=== PATIENT | male | born 1960 | race Caucasian/White ===

== ENCOUNTER 2017-05-10 12:56 | Inpatient (IN) | payer OTHER ==
[~2017-05-10] VITALS: Ht 172.7 cm; Wt 113.2 kg
[~2017-05-10 12:56] MED LIST: ADULT LOW DOSE81 M1 PO
[2017-05-10 14:07] LABS: CHLORIDE 98 mEq/L (99-109); EOSINOPHIL (%) 0 % (0-5); HEMATOCRIT 7.8 % (38.0-50.0); IMMATURE GRANULOCYTE (%) 0.7 % (0.0-0.7); IMMATURE GRANULOCYTE COUNT 0.1 K/uL; INSTRUMENT ABS NEUTROPHIL CT 9.3 K/uL; LYMPHOCYTE COUNT 1.8 K/uL (1.0-2.8); MCH 36.5 PG (29.0-34.0); MCHC 34.6 G/DL (30.0-36.0); MCV 105.4 FL (86-99); MEAN PLAT.VOLUME 12.7 uM^3 (9.0-12.4); MONOCYTE (%) 6.3 % (3-12); MONOCYTE COUNT 0.8 K/uL (0-0.8); NEUTROPHIL (%) 78.2 % (45-76); NEUTROPHIL COUNT 9.3 K/uL (1.8-6.4); PLATELET COUNT 182 K/uL (156-360); POTASSIUM 3.2 mEq/L (3.7-5.4); RBC DIS.WIDTH-CV 15.5 % (11.8-14.6); RBC DIS.WIDTH-SD 55.8 % (39-53); RED BLOOD COUNT 0.74 M/uL (4.00-5.50); SODIUM 141 mEq/L (136-147); WHITE BLOOD COUNT 11.9 K/uL (4.1-10.2)
[2017-05-10 14:08] LABS: MAGNESIUM 2.3 mg/dL (1.3-2.7)
[2017-05-10 14:09] LABS: GLUCOSE 128 mg/dL (70-99); INTER. NORMALIZED RATIO 1.8; PROTHROMBIN TIME 18.9 (9.2-11.2); PTT 25.5 (25-32)
[2017-05-10 14:11] LABS: ANION GAP 15 MEQ/L (2-14)
[2017-05-10 14:13] LABS: GFR ESTIMATE (CALCULATED) > 59 mL/min/
[2017-05-10 14:14] LABS: UREA NITROGEN (BUN) 37 mg/dL (9-23)
[2017-05-10 14:19] LABS: TROP-I INTERPRETATION INDETERMINATE
[2017-05-10 14:20] LABS: TROPONIN-I 0.56 ng/mL (0.0-0.30)
[2017-05-10 15:07] LABS: HEMATOCRIT 7.3 % (38.0-50.0); MCH 37.7 PG (29.0-34.0); MCHC 35.6 G/DL (30.0-36.0); MCV 105.8 FL (86-99); MEAN PLAT.VOLUME 13.4 uM^3 (9.0-12.4); PLATELET COUNT 175 K/uL (156-360); RBC DIS.WIDTH-CV 15.9 % (11.8-14.6); RBC DIS.WIDTH-SD 56.9 % (39-53); RED BLOOD COUNT 0.69 M/uL (4.00-5.50); WHITE BLOOD COUNT 11.1 K/uL (4.1-10.2)
[2017-05-10] MEDS ORDERED: SULINDAC200 MG PO (17:39)
[2017-05-10] MEDS ORDERED: HYDROCHLOROTHIA25 MG PO (17:39)
[2017-05-10] MEDS ORDERED: INCRUSE ELLI62.5 MCG IH (17:39)
[2017-05-10] MEDS ORDERED: ATORVASTATIN CA10 MG PO (17:39)
[2017-05-10] MEDS ORDERED: TYLENOL EXTRA500 MG PO (17:40)
[2017-05-10] MEDS ORDERED: DULERA 200 MCG/13 GM IH (17:40)
[2017-05-10 19:30] VITALS: BP 117/45
[2017-05-10 20:00] VITALS: BP 112/63
[2017-05-10 21:00] VITALS: BP 107/50
[2017-05-10 21:15] LABS: METH RESISTANT S AUREUS PCR NEGATIVE (NEGATIVE); PROBE CHECK PASS; SPECIMEN PROCESSING CONTROL PASS
[2017-05-10 22:00] VITALS: BP 119/55
[2017-05-10 23:00] VITALS: BP 112/56
[2017-05-11] VITALS (36 sets, daily range): BP systolic 96–162; BP diastolic 48–111
[2017-05-11 02:07] LABS: CHLORIDE 100 mEq/L (99-109); POTASSIUM 3.2 mEq/L (3.7-5.4); SODIUM 143 mEq/L (136-147)
[2017-05-11 02:09] LABS: GLUCOSE 122 mg/dL (70-99)
[2017-05-11 02:10] LABS: ANION GAP 12 MEQ/L (2-14)
[2017-05-11 02:12] LABS: ALKALINE PHOSPHATASE 93 IU/L (3-129)
[2017-05-11 02:13] LABS: GFR ESTIMATE (CALCULATED) > 59 mL/min/
[2017-05-11 02:14] LABS: UREA NITROGEN (BUN) 41 mg/dL (9-23)
[2017-05-11 02:17] LABS: WHITE BLOOD COUNT 11.4 K/uL (4.1-10.2)
[2017-05-11 02:18] LABS: HEMATOCRIT 7.6 % (38.0-50.0); MCH 37.1 PG (29.0-34.0); MCHC 34.2 G/DL (30.0-36.0); MCV 108.6 FL (86-99); MEAN PLAT.VOLUME 13.2 uM^3 (9.0-12.4); RBC DIS.WIDTH-CV 16.7 % (11.8-14.6); RBC DIS.WIDTH-SD 57.9 % (39-53)
[2017-05-11 02:19] LABS: PLATELET COUNT 186 K/uL (156-360)
[2017-05-11 02:27] LABS: TROP-I INTERPRETATION POSITIVE; TROPONIN-I 0.87 ng/mL (0.0-0.30)
[2017-05-11 02:33] LABS: INTER. NORMALIZED RATIO 1.6; PROTHROMBIN TIME 16.4 (9.2-11.2); PTT 26.1 (25-32)
[2017-05-11 02:34] LABS: MAGNESIUM 2.7 mg/dL (1.3-2.7)
[2017-05-11 04:18] LABS: IRON 253 MCG/DL (35-150)
[2017-05-11 06:25] LABS: CARBON DIOXIDE (BICARBONATE) 34.1 MEQ/L (20-31)
[2017-05-11 09:08] LABS: ALKALINE PHOSPHATASE 85 IU/L (3-129); ANION GAP 11 MEQ/L (2-14); CHLORIDE 103 MEQ/L (99-109); GFR ESTIMATE (CALCULATED) > 59 mL/min/; GLUCOSE 125 mg/dL (70-99); POTASSIUM 3.8 MEQ/L (3.7-5.4); SAMPLE HEMOLYSIS CHECK 0; SAMPLE ICTERIC CHECK 0; SAMPLE LIPEMIA CHECK 0; SODIUM 145 MEQ/L (136-147); UREA NITROGEN (BUN) 41 mg/dL (9-23)
[2017-05-11 10:33] LABS: HBSG INDEX 0.27
[2017-05-11 10:34] LABS: ANTI-HEPATITIS A VIRUS (IGM) Nonreactive; HAV INDEX 0.13
[2017-05-11 10:35] LABS: ANTI-HEPATITIS B CORE (IGM) Nonreactive; HBC IgM INDEX 0.11
[2017-05-11 13:34] LABS: TROP-I INTERPRETATION POSITIVE; TROPONIN-I 0.61 ng/mL (0.0-0.30)
[2017-05-11 22:48] LABS: HEMATOCRIT 22.1 % (38.0-50.0); MCV 92.5 FL (86-99)
[2017-05-12] VITALS (8 sets, daily range): BP systolic 118–142; BP diastolic 73–88
[2017-05-12 06:46] LABS: LACTATE DEHYDROGENASE 460 IU/L (20-246)
[2017-05-12 10:41] LABS: ALKALINE PHOSPHATASE 95 IU/L (3-129)
[2017-05-12 10:42] LABS: TOTAL BILIRUBIN 2.5 MG/DL (0.0-1.0)
[2017-05-12 14:18] LABS: IMM.RETIC FRACTION 21.8 % (3-19); RETIC HGB EQUIVALENT 39.7 (28-36); RETICULOCYTE COUNT 1.6 % (0.5-1.8)
[2017-05-12 15:22] LABS: ANION GAP 8 MEQ/L (2-14); CHLORIDE 103 MEQ/L (99-109); GFR ESTIMATE (CALCULATED) > 59 mL/min/; GLUCOSE 186 mg/dL (70-99); POTASSIUM 3.6 MEQ/L (3.7-5.4); SAMPLE HEMOLYSIS CHECK 0; SAMPLE ICTERIC CHECK 0; SAMPLE LIPEMIA CHECK 0; SODIUM 142 MEQ/L (136-147); UREA NITROGEN (BUN) 23 mg/dL (9-23)
[2017-05-13 00:18] VITALS: BP 130/74
[2017-05-13 01:00] LABS: ADD MIUA? NO; BILIRUBIN NEGATIVE; BLOOD NEGATIVE; COLOR YELLOW ((YELLOW)); GLUCOSE (STRIP) NEGATIVE; KETONES NEGATIVE; LEUKOCYTES NEGATIVE; NITRITE NEGATIVE; PROTEIN (STRIP) NEGATIVE; SPECIFIC GRAVITY 1.016 (1.000-1.030)
[2017-05-13 04:33] VITALS: BP 127/81
[2017-05-13 05:39] LABS: EOSINOPHIL (%) 0 % (0-5); HEMATOCRIT 20.8 % (38.0-50.0); IMMATURE GRANULOCYTE (%) 0.6 % (0.0-0.7); IMMATURE GRANULOCYTE COUNT 0.1 K/uL; INSTRUMENT ABS NEUTROPHIL CT 8.5 K/uL; LYMPHOCYTE COUNT 1.6 K/uL (1.0-2.8); MCH 32.1 PG (29.0-34.0); MCHC 34.6 G/DL (30.0-36.0); MCV 92.9 FL (86-99); MEAN PLAT.VOLUME 12.6 uM^3 (9.0-12.4); MONOCYTE (%) 6.5 % (3-12); MONOCYTE COUNT 0.7 K/uL (0-0.8); NEUTROPHIL COUNT 8.5 K/uL (1.8-6.4); PLATELET COUNT 139 K/uL (156-360); RBC DIS.WIDTH-CV 17.4 % (11.8-14.6); RBC DIS.WIDTH-SD 56.7 % (39-53); WHITE BLOOD COUNT 10.8 K/uL (4.1-10.2)
[2017-05-13 05:55] LABS: RED BLOOD COUNT 2.24 M/uL (4.00-5.50)
[2017-05-13 06:45] LABS: ALKALINE PHOSPHATASE 74 IU/L (3-129); ANION GAP 8 MEQ/L (2-14); CHLORIDE 103 MEQ/L (99-109); GFR ESTIMATE (CALCULATED) > 59 mL/min/; POTASSIUM 3.6 MEQ/L (3.7-5.4); SAMPLE HEMOLYSIS CHECK 0; SAMPLE ICTERIC CHECK 0; SAMPLE LIPEMIA CHECK 0; SODIUM 141 MEQ/L (136-147); UREA NITROGEN (BUN) 21 mg/dL (9-23)
[2017-05-13 06:48] LABS: GLUCOSE 117 mg/dL (70-99); TOTAL BILIRUBIN 1.6 MG/DL (0.0-1.0)
[2017-05-13 08:02] VITALS: BP 132/76
[2017-05-13 11:16] VITALS: BP 113/61
[2017-05-13 15:10] VITALS: BP 130/71
[2017-05-14] VITALS (12 sets, daily range): BP systolic 128–149; BP diastolic 66–90
[2017-05-14 05:53] LABS: EOSINOPHIL (%) 0 % (0-5); HEMATOCRIT 22.6 % (38.0-50.0); IMMATURE GRANULOCYTE (%) 0.5 % (0.0-0.7); IMMATURE GRANULOCYTE COUNT 0.1 K/uL; INSTRUMENT ABS NEUTROPHIL CT 7.3 K/uL; LYMPHOCYTE COUNT 1.8 K/uL (1.0-2.8); MCH 32.2 PG (29.0-34.0); MCHC 34.5 G/DL (30.0-36.0); MCV 93.4 FL (86-99); MEAN PLAT.VOLUME 12.2 uM^3 (9.0-12.4); MONOCYTE (%) 8.3 % (3-12); MONOCYTE COUNT 0.8 K/uL (0-0.8); NEUTROPHIL COUNT 7.3 K/uL (1.8-6.4); PLATELET COUNT 148 K/uL (156-360); RBC DIS.WIDTH-CV 16.8 % (11.8-14.6); RBC DIS.WIDTH-SD 55.1 % (39-53); RED BLOOD COUNT 2.42 M/uL (4.00-5.50); WHITE BLOOD COUNT 10.1 K/uL (4.1-10.2)
[2017-05-14 06:42] LABS: ALKALINE PHOSPHATASE 68 IU/L (3-129); ANION GAP 5 MEQ/L (2-14); CHLORIDE 105 MEQ/L (99-109); GFR ESTIMATE (CALCULATED) > 59 mL/min/; GLUCOSE 123 mg/dL (70-99); POTASSIUM 4.1 MEQ/L (3.7-5.4); SAMPLE HEMOLYSIS CHECK 0; SAMPLE ICTERIC CHECK 0; SAMPLE LIPEMIA CHECK 0; SODIUM 141 MEQ/L (136-147); UREA NITROGEN (BUN) 18 mg/dL (9-23)
[2017-05-14 06:43] LABS: TOTAL BILIRUBIN 1.2 MG/DL (0.0-1.0)
[2017-05-15 00:31] VITALS: BP 161/88
[2017-05-15 03:22] VITALS: BP 120/80
[2017-05-15 05:50] LABS: EOSINOPHIL (%) 0 % (0-5); HEMATOCRIT 28.1 % (38.0-50.0); IMMATURE GRANULOCYTE (%) 0.4 % (0.0-0.7); INSTRUMENT ABS NEUTROPHIL CT 7.1 K/uL; LYMPHOCYTE COUNT 2.1 K/uL (1.0-2.8); MCH 32.3 PG (29.0-34.0); MCHC 34.5 G/DL (30.0-36.0); MCV 93.7 FL (86-99); MEAN PLAT.VOLUME 12.2 uM^3 (9.0-12.4); MONOCYTE (%) 7.7 % (3-12); MONOCYTE COUNT 0.8 K/uL (0-0.8); NEUTROPHIL (%) 70.9 % (45-76); NEUTROPHIL COUNT 7.1 K/uL (1.8-6.4); NRBC (%) 0.2 /100 WBC (0-0); PLATELET COUNT 135 K/uL (156-360); RBC DIS.WIDTH-CV 16.1 % (11.8-14.6); RBC DIS.WIDTH-SD 51.9 % (39-53)
[2017-05-15 06:13] LABS: ANION GAP 7 MEQ/L (2-14); CHLORIDE 106 MEQ/L (99-109); POTASSIUM 4.1 MEQ/L (3.7-5.4); SAMPLE HEMOLYSIS CHECK 0; SAMPLE ICTERIC CHECK 0; SAMPLE LIPEMIA CHECK 0; SODIUM 141 MEQ/L (136-147); TOTAL BILIRUBIN 1.3 MG/DL (0.0-1.0)
[2017-05-15 06:19] LABS: ALKALINE PHOSPHATASE 62 IU/L (3-129); GFR ESTIMATE (CALCULATED) > 59 mL/min/; GLUCOSE 116 mg/dL (70-99); UREA NITROGEN (BUN) 15 mg/dL (9-23)
[2017-05-15 08:20] VITALS: BP 157/79
[2017-05-15] MEDS ORDERED: DAILY VALUE1 EACH PO (11:56)
[2017-05-15] MEDS ORDERED: FOLIC ACID1 MG PO (11:56)
[2017-05-15] MEDS ORDERED: Thiamine,Vitamin B1 PO (11:56)
[2017-05-15] MEDS ORDERED: LISINOPRIL2.5 MG PO (11:56)
[2017-05-15] MEDS ORDERED: PREDNISONE50 MG PO (11:56)
[2017-05-15] MEDS ORDERED: CHLORDIAZEPOXID25 MG PO (11:56)
[2017-05-15] MEDS ORDERED: ULTRAM50 MG PO (11:56)
[2017-05-15] MEDS ORDERED: FAMOTIDINE40 MG PO (11:56)
[2017-05-15 12:23] VITALS: BP 154/79
== END 2017-05-15 14:10 | disposition home or self-care (01) | DRG 808 ==
LOC: EME 12:56 → EDOF 16:51 → 4WEST 16:51 → EDOF 19:15 → 4WEST 05-11 23:01 → 5SOUTH 05-12 20:04
PROVIDERS: Emergency Medicine; Hospitalist; Internal Medicine Cardiovascular Disease; Internal Medicine Critical Care Medicine; Internal Medicine Hematology & Oncology; Obstetrics & Gynecology
PROC: 30233N1 Transfusion of Nonautologous Red Blood Cells into Peripheral Vein, Percutaneous Approach (ICD-10-PCS; principal; 2017-05-10)
DX: D59.1 Other autoimmune hemolytic anemias (principal); I21.4 Non-ST elevation (NSTEMI) myocardial infarction; E86.0 Dehydration; E86.1 Hypovolemia; E87.6 Hypokalemia; I10 Essential (primary) hypertension; J44.9 Chronic obstructive pulmonary disease, unspecified; E66.9 Obesity, unspecified; F10.10 Alcohol abuse, uncomplicated; F17.210 Nicotine dependence, cigarettes, uncomplicated; G47.33 Obstructive sleep apnea (adult) (pediatric); K76.0 Fatty (change of) liver, not elsewhere classified; M17.9 Osteoarthritis of knee, unspecified; M79.7 Fibromyalgia; I95.9 Hypotension, unspecified; R59.0 Localized enlarged lymph nodes; R74.0 Nonspecific elevation of levels of transaminase and lactic acid dehydrogenase [LDH]; M75.91 Shoulder lesion, unspecified, right shoulder; Z79.82 Long term (current) use of aspirin; Z88.0 Allergy status to penicillin; Z68.37 Body mass index [BMI] 37.0-37.9, adult
CPT/HCPCS: 70450; 71010; 71260; 74177; 76705; 80048; 80053; 80074; 80076; 81003; 82607; 82746; 82803; 82948; 83010 90; 83021 90; 83540; 83615; 83735; 84100; 84466; 84484; 85014; 85018; 85025; 85027; 85045; 85610; 85730; 86860; 86860 90; 86870; 86880; 86880 90; 86885 90; 86900; 86900 90; 86901; 86901 90; 86904 90; 86905 90; 86906 90; 86920; 86970 90; 86971 90; 86978 90; 87641; 93005; 93306; 94640; 94640 76; 94760; 94799; 99281; 99285; J7120; J7512; P9016; S0028

== ENCOUNTER 2017-07-18 13:39 | Inpatient (IN) | payer OTHER ==
[2017-07-18] VITALS (9 sets, daily range): BP systolic 95–135; BP diastolic 63–80
[~2017-07-18] VITALS: Ht 172.7 cm; Wt 109.4 kg
[~2017-07-18 13:39] MED LIST changes: +ATORVASTATIN CA10 MG PO; +CHLORDIAZEPOXID25 MG PO; +DAILY VALUE1 EACH PO; +DULERA 200 MCG/13 GM IH; +FAMOTIDINE40 MG PO; +FOLIC ACID1 MG PO; +HYDROCHLOROTHIA25 MG PO; +INCRUSE ELLI62.5 MCG IH; +LISINOPRIL2.5 MG PO; +PREDNISONE50 MG PO; +SULINDAC200 MG PO; +TYLENOL EXTRA500 MG PO; +Thiamine,Vitamin B1 PO; +ULTRAM50 MG PO
[2017-07-18 14:43] LABS: EOSINOPHIL (%) 0.7 % (0-5); EOSINOPHIL COUNT 0.1 K/uL (0-0.3); HEMATOCRIT 41.8 % (38.0-50.0); IMMATURE GRANULOCYTE (%) 0.7 % (0.0-0.7); IMMATURE GRANULOCYTE COUNT 0.1 K/uL; INSTRUMENT ABS NEUTROPHIL CT 7.8 K/uL; LYMPHOCYTE COUNT 1.5 K/uL (1.0-2.8); MCH 31.6 PG (29.0-34.0); MCHC 35.6 G/DL (30.0-36.0); MCV 88.6 FL (86-99); MEAN PLAT.VOLUME 11.3 uM^3 (9.0-12.4); MONOCYTE (%) 12.4 % (3-12); MONOCYTE COUNT 1.3 K/uL (0-0.8); NEUTROPHIL (%) 72.1 % (45-76); NEUTROPHIL COUNT 7.8 K/uL (1.8-6.4); PLATELET COUNT 272 K/uL (156-360); RBC DIS.WIDTH-CV 14.8 % (11.8-14.6); RBC DIS.WIDTH-SD 48.4 % (39-53); RED BLOOD COUNT 4.72 M/uL (4.00-5.50); WHITE BLOOD COUNT 10.8 K/uL (4.1-10.2)
[2017-07-18 14:48] LABS: INTER. NORMALIZED RATIO 1.2; PROTHROMBIN TIME 13.1 SEC (10.2-12.9)
[2017-07-18 14:53] LABS: CHLORIDE 85 mEq/L (99-109); POTASSIUM 5.7 mEq/L (3.7-5.4); SODIUM 128 mEq/L (136-147)
[2017-07-18 14:55] LABS: GLUCOSE 129 mg/dL (70-99)
[2017-07-18 14:57] LABS: ANION GAP 30 MEQ/L (2-14)
[2017-07-18 14:59] LABS: ALKALINE PHOSPHATASE 75 IU/L (3-129); GFR ESTIMATE (CALCULATED) 7 mL/min/
[2017-07-18 15:01] LABS: DIRECT BILIRUBIN 0.5 mg/dL (0.0-0.3)
[2017-07-18 15:03] LABS: TROP-I INTERPRETATION NEGATIVE; TROPONIN-I 0.03 ng/mL (0.0-0.30)
[2017-07-18 15:17] LABS: UREA NITROGEN (BUN) 124 mg/dL (9-23)
[2017-07-18 20:00] LABS: MCH 32.3 PG (29.0-34.0); MCHC 35.5 G/DL (30.0-36.0); MCV 90.9 FL (86-99); MEAN PLAT.VOLUME 11.2 uM^3 (9.0-12.4); PLATELET COUNT 216 K/uL (156-360); RBC DIS.WIDTH-CV 15.2 % (11.8-14.6); RBC DIS.WIDTH-SD 50.6 % (39-53)
[2017-07-18 20:32] LABS: ANION GAP 21 MEQ/L (2-14); CHLORIDE 92 MEQ/L (99-109); MAGNESIUM 1.9 mg/dl (1.3-2.7); POTASSIUM 5.1 MEQ/L (3.7-5.4); SAMPLE HEMOLYSIS CHECK 0; SAMPLE ICTERIC CHECK 0; SAMPLE LIPEMIA CHECK 0; SODIUM 129 MEQ/L (136-147)
[2017-07-18 20:43] LABS: GFR ESTIMATE (CALCULATED) 9 mL/min/; GLUCOSE 119 mg/dL (70-99)
[2017-07-18 20:45] LABS: UREA NITROGEN (BUN) 114 mg/dL (9-23)
[2017-07-18 22:27] LABS: METH RESISTANT S AUREUS PCR NEGATIVE (NEGATIVE)
[2017-07-18 22:36] LABS: PROBE CHECK PASS; SPECIMEN PROCESSING CONTROL PASS
[2017-07-19] VITALS (18 sets, daily range): BP systolic 111–144; BP diastolic 63–93
[2017-07-19 05:38] LABS: HEMATOCRIT 40.3 % (38.0-50.0); MCH 30.9 PG (29.0-34.0); MEAN PLAT.VOLUME 11.3 uM^3 (9.0-12.4); PLATELET COUNT 227 K/uL (156-360); RBC DIS.WIDTH-CV 15.2 % (11.8-14.6); RBC DIS.WIDTH-SD 50.7 % (39-53); RED BLOOD COUNT 4.43 M/uL (4.00-5.50)
[2017-07-19 06:37] LABS: ANION GAP 18 MEQ/L (2-14); CHLORIDE 95 MEQ/L (99-109); MAGNESIUM 1.9 mg/dl (1.3-2.7); POTASSIUM 4.7 MEQ/L (3.7-5.4); SAMPLE HEMOLYSIS CHECK 0; SAMPLE ICTERIC CHECK 0; SAMPLE LIPEMIA CHECK 0; SODIUM 131 MEQ/L (136-147)
[2017-07-19 06:41] LABS: GFR ESTIMATE (CALCULATED) 13 mL/min/; GLUCOSE 199 mg/dL (70-99); UREA NITROGEN (BUN) 107 mg/dL (9-23)
[2017-07-19] MEDS ORDERED: ATORVASTATIN CA20 MG PO (13:06)
[2017-07-19] MEDS ORDERED: PREDNISONE10 MG PO (13:09)
[2017-07-19] MEDS ORDERED: PANTOPRAZOLE SO40 MG PO (13:12)
[2017-07-19] MEDS ORDERED: BUPROPION HCL150 M2 PO (13:13)
[2017-07-19] MEDS ORDERED: BREO ELLIPTA 21 EACH IH (13:14)
[2017-07-20] VITALS (9 sets, daily range): BP systolic 133–163; BP diastolic 73–102
[2017-07-20 05:25] LABS: HEMATOCRIT 37.7 % (38.0-50.0); MCH 32.2 PG (29.0-34.0); MCHC 34.2 G/DL (30.0-36.0); MEAN PLAT.VOLUME 12.7 uM^3 (9.0-12.4); PLATELET COUNT 188 K/uL (156-360); RBC DIS.WIDTH-CV 15.6 % (11.8-14.6); RBC DIS.WIDTH-SD 53.6 % (39-53); RED BLOOD COUNT 4.01 M/uL (4.00-5.50); WHITE BLOOD COUNT 6.8 K/uL (4.1-10.2)
[2017-07-20 06:39] LABS: ANION GAP 12 MEQ/L (2-14); GLUCOSE 163 mg/dL (70-99); POTASSIUM 4.3 MEQ/L (3.7-5.4); SAMPLE HEMOLYSIS CHECK 0; SAMPLE ICTERIC CHECK 0; SAMPLE LIPEMIA CHECK 0; UREA NITROGEN (BUN) 74 mg/dL (9-23); URIC ACID 11.4 mg/dL (3.1-9.2)
[2017-07-20 06:52] LABS: CHLORIDE 107 MEQ/L (99-109); GFR ESTIMATE (CALCULATED) 48 mL/min/; MAGNESIUM 2.3 mg/dl (1.3-2.7); SODIUM 138 MEQ/L (136-147)
[2017-07-20 09:37] LABS: ADD MIUA? YES; BILIRUBIN NEGATIVE; BLOOD MODERATE; COLOR YELLOW ((YELLOW)); GLUCOSE (STRIP) 150; KETONES NEGATIVE; LEUKOCYTES NEGATIVE; NITRITE NEGATIVE; PROTEIN (STRIP) 30; SPECIFIC GRAVITY 1.018 (1.000-1.030); UROBILINOGEN 0.2 MG/DL (0.2-1.0)
[2017-07-20 09:48] LABS: BACTERIA RARE /HPF; EPITHELIAL CELLS RARE /HPF; HYALINE CASTS 0-5 /LPF; MUCUS TRACE /LPF; URIC ACID CRYSTALS 4+ /HPF; WHITE BLOOD CELLS 0-5 /HPF (0-5)
[2017-07-20 11:01] LABS: UR CREATININE CONCENTRATION 86.6 MG/DL; UR CREATININE CONCENTRATION 86.8 MG/DL
[2017-07-21 04:32] VITALS: BP 141/75
[2017-07-21 06:40] LABS: HEMATOCRIT 32.8 % (38.0-50.0); MCHC 32.9 G/DL (30.0-36.0); MCV 94.3 FL (86-99); MEAN PLAT.VOLUME 11.4 uM^3 (9.0-12.4); PLATELET COUNT 208 K/uL (156-360); RBC DIS.WIDTH-CV 15.7 % (11.8-14.6); RBC DIS.WIDTH-SD 54.3 % (39-53); RED BLOOD COUNT 3.48 M/uL (4.00-5.50); WHITE BLOOD COUNT 9.7 K/uL (4.1-10.2)
[2017-07-21 06:48] LABS: ANION GAP 9 MEQ/L (2-14); CHLORIDE 107 MEQ/L (99-109); GLUCOSE 157 mg/dL (70-99); POTASSIUM 4.3 MEQ/L (3.7-5.4); SAMPLE HEMOLYSIS CHECK 0; SAMPLE ICTERIC CHECK 0; SAMPLE LIPEMIA CHECK 0; SODIUM 139 MEQ/L (136-147); UREA NITROGEN (BUN) 46 mg/dL (9-23)
[2017-07-21 06:49] LABS: GFR ESTIMATE (CALCULATED) > 59 mL/min/; MAGNESIUM 1.9 mg/dl (1.3-2.7)
[2017-07-21 08:08] VITALS: BP 155/74
[2017-07-21 10:38] VITALS: BP 155/77
[2017-07-21 15:18] VITALS: BP 170/79
[2017-07-21 20:29] VITALS: BP 159/74
[2017-07-22 00:15] VITALS: BP 168/80
[2017-07-22 03:28] VITALS: BP 153/76
[2017-07-22 06:27] LABS: MCH 32.1 PG (29.0-34.0); MCV 97.1 FL (86-99); MEAN PLAT.VOLUME 11.1 uM^3 (9.0-12.4); PLATELET COUNT 194 K/uL (156-360); RBC DIS.WIDTH-CV 15.7 % (11.8-14.6); RBC DIS.WIDTH-SD 55.8 % (39-53); WHITE BLOOD COUNT 16.4 K/uL (4.1-10.2)
[2017-07-22 06:47] LABS: ANION GAP 9 MEQ/L (2-14); CHLORIDE 107 MEQ/L (99-109); MAGNESIUM 1.7 mg/dl (1.3-2.7); POTASSIUM 4.6 MEQ/L (3.7-5.4); SAMPLE HEMOLYSIS CHECK 0; SAMPLE ICTERIC CHECK 0; SAMPLE LIPEMIA CHECK 0; SODIUM 137 MEQ/L (136-147)
[2017-07-22 06:53] LABS: GFR ESTIMATE (CALCULATED) > 59 mL/min/; UREA NITROGEN (BUN) 33 mg/dL (9-23)
[2017-07-22 07:11] LABS: GLUCOSE 101 mg/dL (70-99)
[2017-07-22 08:00] VITALS: BP 177/98
[2017-07-22 08:53] VITALS: BP 130/70
[2017-07-22 11:42] VITALS: BP 149/90
[2017-07-22] MEDS ORDERED: HYDROCODON-ACE1 EAC7 PO (13:57)
[2017-07-22] MEDS ORDERED: ZITHROMAX Z-PA250 MG PO (14:18)
[2017-07-22 16:42] VITALS: BP 166/85
== END 2017-07-22 17:21 | disposition home or self-care (01) | DRG 329 ==
LOC: EME 13:39 → 4WEST 15:23 → EDOF 15:23 → ENRESERV 15:24 → 4WEST 19:51 → ENRESERV 07-20 17:32 → CANRESERV 07-20 17:46 → ENRESERV 07-20 17:46 → 3EAST 07-20 20:25
PROVIDERS: Emergency Medicine; Internal Medicine Critical Care Medicine; Internal Medicine Nephrology; Surgery
DX: K42.0 Umbilical hernia with obstruction, without gangrene (principal); K55.9 Vascular disorder of intestine, unspecified; L03.316 Cellulitis of umbilicus; R57.1 Hypovolemic shock; N17.9 Acute kidney failure, unspecified; D59.1 Other autoimmune hemolytic anemias; E86.0 Dehydration; R73.9 Hyperglycemia, unspecified; J44.9 Chronic obstructive pulmonary disease, unspecified; I10 Essential (primary) hypertension; M79.7 Fibromyalgia; K21.9 Gastro-esophageal reflux disease without esophagitis; E66.9 Obesity, unspecified; G47.33 Obstructive sleep apnea (adult) (pediatric); I27.2 Other secondary pulmonary hypertension; K76.0 Fatty (change of) liver, not elsewhere classified; M19.90 Unspecified osteoarthritis, unspecified site; R59.0 Localized enlarged lymph nodes; F10.21 Alcohol dependence, in remission; F17.210 Nicotine dependence, cigarettes, uncomplicated; Z79.82 Long term (current) use of aspirin; I25.2 Old myocardial infarction; Z88.0 Allergy status to penicillin; Z79.52 Long term (current) use of systemic steroids; Z68.36 Body mass index [BMI] 36.0-36.9, adult
CPT/HCPCS: 71010; 74176; 76770; 80048; 80048 91; 80069; 80076; 81003; 82570; 83735; 84100; 84156; 84300; 84484; 84550; 85025; 85027; 85610; 86850; 86860; 86870; 86880; 86900; 86901; 87641; 88302; 88307; 93005; 94640; 94640 76; 94799; 99202; 99281; 99285; J0131; J0330; J1170; J1644; J1720; J2250; J2270; J2405; J2710; J2920; J2930; J3010; J7030; J7042; J7050; J7512; S0028; S0074

== ENCOUNTER → 2017-08-24 | Outpatient (CLI) | payer OTHER ==
[~2017-08-24] MED LIST changes: +ATORVASTATIN CA20 MG PO; +BREO ELLIPTA 21 EACH IH; +BUPROPION HCL150 M2 PO; +HYDROCODON-ACE1 EAC7 PO; +PANTOPRAZOLE SO40 MG PO; +PREDNISONE10 MG PO; +RAYOS5 MG PO; +ZITHROMAX Z-PA250 MG PO
== END | disposition home or self-care (01) ==
LOC: AMB 12:30
PROC: 0JB80ZZ Excision of Abdomen Subcutaneous Tissue and Fascia, Open Approach (ICD-10-PCS; principal; 2017-08-24)
DX: T81.89XA Other complications of procedures, not elsewhere classified, initial encounter (principal); Z91.19 Patient's noncompliance with other medical treatment and regimen; F17.210 Nicotine dependence, cigarettes, uncomplicated; J44.9 Chronic obstructive pulmonary disease, unspecified; I10 Essential (primary) hypertension; D59.1 Other autoimmune hemolytic anemias; R74.8 Abnormal levels of other serum enzymes; R74.0 Nonspecific elevation of levels of transaminase and lactic acid dehydrogenase [LDH]; F10.11 Alcohol abuse, in remission; Z87.19 Personal history of other diseases of the digestive system; E78.00 Pure hypercholesterolemia, unspecified; E87.6 Hypokalemia; E78.1 Pure hyperglyceridemia; E66.01 Morbid (severe) obesity due to excess calories; Z68.37 Body mass index [BMI] 37.0-37.9, adult; R60.0 Localized edema; Z88.0 Allergy status to penicillin; Y83.8 Other surgical procedures as the cause of abnormal reaction of the patient, or of later complication, without mention of misadventure at the time of the procedure